=== PATIENT | female | born 1985 | race African-American/Black ===

== ENCOUNTER 2022-09-04 16:07 | Inpatient (IN) | payer OTHER ==
[~2022-09-04] VITALS: Ht 165.1 cm; Wt 148.9 kg
[2022-09-04] MEDS ORDERED: NITROGLYCERIN 0.4MG TABLET SL SL PRN (16:30)
[2022-09-04 16:52] LABS: BASOPHILS % 0.4 % (0.0-2.0); EOSINOPHILS % 0.4 % (0.0-5.0); HEMATOCRIT. 35.1 % (36.0-48.0); HEMOGLOBIN. 11.1 g/dL (12.0-16.0); LYMPHOCYTES % 20.8 % (20.0-50.0); MEAN CORPUSCULAR HEMOGLOBIN 23.2 pg (28.0-32.0); MEAN CORPUSCULAR VOLUME 73.5 fL (81.0-99.0); MONOCYTES % 5.4 % (2.0-8.0); PLATELET 278 x1000/uL (130-400); RED BLOOD CELL COUNT 4.78 mill/uL (4.2-5.4); RED CELL DISTRIBUTION WIDTH 15.7 % (11.6-14.6)
[2022-09-04 16:59] LABS: HCG SCREEN NEGATIVE
[2022-09-04 17:00] LABS: CHLORIDE 102 mEq/L (98-107)
[2022-09-04 17:04] LABS: D-DIMER 0.27 mg/L FEU (<0.50); INR 1.2; PARTIAL THROMBOPLASTIN TIME 26.1 sec (23.4-31.0); PROTHROMBIN TIME 12.7 sec (9.6-11.0)
[2022-09-05 08:00] VITALS: BP 128/67
[2022-09-05] MEDS ORDERED: ACETAMINOPHEN 325MG TABLET PO PRN (09:30)
[2022-09-05] MEDS ORDERED: ONDANSETRON HCL 4MG/2ML INJ IV PRN (09:30)
[2022-09-05 12:00] VITALS: BP 121/71
[2022-09-05] MEDS ORDERED: FERR236T3 MT (13:37)
[2022-09-05] MEDS ORDERED: ASPIRIN 81MG EC TABLET PO SCH (13:45)
[2022-09-05 17:04] VITALS: BP 148/68
== END 2022-09-05 17:45 | disposition home or self-care (01) | DRG 203 ==
LOC: ER 16:07 → MICUSO 21:26 → EDBEDREQ 21:37 → EDBEDREQTM 21:37 → 8WST 09-05 12:28
PROVIDERS: ADMIT Internal Medicine; ATTEND Internal Medicine
DX: M94.0 Chondrocostal junction syndrome [Tietze] (principal); Z68.43 Body mass index [BMI] 50.0-59.9, adult; E66.01 Morbid (severe) obesity due to excess calories; I44.7 Left bundle-branch block, unspecified; J45.909 Unspecified asthma, uncomplicated; F12.90 Cannabis use, unspecified, uncomplicated; Z82.49 Family history of ischemic heart disease and other diseases of the circulatory system; Z63.4 Disappearance and death of family member
CPT/HCPCS: 36415; 71045; 80053; 83880; 84484; 84703; 85025; 85379; 93005; 93306; 99285